=== PATIENT | female | born 1955 | race Caucasian/White ===

== ENCOUNTER 2024-06-03 16:04 | Emergency (ER) | payer MEDICARE ==
[~2024-06-03] VITALS: Ht 170.2 cm; Wt 70.0 kg
[2024-06-03 18:08] VITALS: BP 176/95; TEMP 97.2; O2SAT 99
[2024-06-03] MEDS ORDERED: AMOX875T2 PO (18:55)
[2024-06-03] MEDS ORDERED: ASPE4PAD TOP (18:55)
== END 2024-06-03 19:13 | disposition home or self-care (01) ==
LOC: M ED 16:04
DX: K08.89 Other specified disorders of teeth and supporting structures (principal); G89.4 Chronic pain syndrome; I10 Essential (primary) hypertension; E78.5 Hyperlipidemia, unspecified; F41.9 Anxiety disorder, unspecified; F17.200 Nicotine dependence, unspecified, uncomplicated; Z88.8 Allergy status to other drugs, medicaments and biological substances; Z79.2 Long term (current) use of antibiotics; Z79.899 Other long term (current) drug therapy